=== PATIENT | male | born 1990 | race Caucasian/White ===

== ENCOUNTER 2016-11-07 20:17 | Emergency (ER) | payer SELFPAY ==
[~2016-11-07] VITALS: Ht 185.4 cm; Wt 102.3 kg
[~2016-11-07 20:17] MED LIST: IBUP-232 PO; Z.0.NO CURRENT MEDS; ZOFR4TAB3 SL
[2016-11-07 20:21] VITALS: BP 131/86; PULSE 82; RESP 16; TEMP 98.1; O2SAT 98
[2016-11-07 21:22] VITALS: BP 168/82; PULSE 86; RESP 18; O2SAT 99
[2016-11-07] MEDS ORDERED: ONDANSETRON HCL 4 MG/2 ML VIAL IV ONE (21:30)
[2016-11-07] MEDS ORDERED: SODIUM CHLOR 0.9% 1000 ML INJ 1,000 ML IV ONE ×2 (21:30→23:00)
[2016-11-07 21:44] LABS: BASOPHIL # 0.1 TH/MM3 (0-0.2); BASOPHIL % 0.4 % (0.0-2.0); EOSINOPHIL # 0.1 TH/MM3 (0-0.4); EOSINOPHIL % 0.6 % (0.0-4.0); HEMATOCRIT 47.9 % (39.0-51.0); HEMO FLAGS DIFF FINAL; LYMPH % 15.7 % (9.0-44.0); LYMPHOCYTE # 3.1 TH/MM3 (1.0-4.8); MEAN CELL VOLUME 86.3 FL (80.0-100.0); MEAN CORPUSCULAR HGB CONC 34.8 % (32.0-36.0); MONO % 6.1 % (0.0-8.0); NEUT % 77.2 % (16.0-70.0); PLATELET COUNT 286 TH/MM3 (150-450); RED BLOOD COUNT 5.55 MIL/MM3 (4.50-5.90); RED CELL DISTRIBUTION WIDTH 12.6 % (11.6-17.2); WHITE BLOOD COUNT 19.4 TH/MM3 (4.0-11.0)
--- NOTE | 2016-11-07 21:44 | PD ---
HPI Chief Complaint: Abdominal Pain Time Seen by Provider: 21:21 Travel History International Travel<30 days: No Contact w/Intl Traveler<30days: No History of Present Illness HPI The patient is a 26 year old male who presents to the [facility] emergency department with a history of severe abdominal pain that began abruptly at 7 PM while he was hanging out with a friend. He reports that his last meal was at 3 PM. He reports that he's never had a pain like this previously. He reports that the pain seems to move around his abdomen. He reports that it started in the midepigastric area and now has moved to the periumbilical area and is associated with a burning sensation in the right side of the scrotum. The patient denies having any scrotal swelling or penile discharge. He reports that since he is arrives in the emergency department he's begun to have dysuria with urinating small amounts of urine. He reports that he has had a kidney stone in the past, however the pain feels different. He reports that he does have associated back pain more on the right compared to the left. Her ports that he's had nausea and vomiting 8 associated with this. He reports that he has a pressure sensation in his abdomen that makes him feel like he has to move his bowels. He last moved his bowels at approximately 6 PM today and had a normal bowel movement. He denies having any blood in his stool or black or tarry stools. The patient reports that the pain is a sharp pain associated with a severe pressure sensation. He reports the pain is constant. On review of systems, the patient denies any recent known fevers, cough, congestion, neck pain, chest pain, shortness of breath, diarrhea, or neurologic symptoms. The patient reports that he has had some problems with recent heartburn, reflux symptoms. [facility] Past Medical History Narrative Medical The patient's past medical history is significant for kidney stones last 2-3 years ago. Medical History: Denies Significant Hx Tetanus Vaccination: > 5 Years Past Surgical History Narrative Surgical The patient's past surgical history is reportedly none. Surgical History: No Previous Surgery Social History Alcohol Use: Yes ([employer] EVERY OTHER DAY) Tobacco Use: No Substance Use: Yes (MJ) Allergies-Medications (Allergen,Severity, Reaction): Coded Allergies: No Known Allergies (Unverified , 11/07/16) Reported Meds & Prescriptions Reported Meds & Active Scripts Active Cipro (Ciprofloxacin HCl) 500 Mg Tab 500 Mg PO BID 10 Days Ibuprofen 600 Mg Tab 600 Mg PO Q8H PRN Zofran Odt (Ondansetron Odt) 4 Mg Tab 4 Mg SL Q6HR PRN Lortab (Hydrocodone-Acetaminophen) 7.5-325 Mg Tab 1 Tab PO Q4H PRN Flomax (Tamsulosin HCl) 0.4 Mg Cap 0.4 Mg PO HS Review of Systems Except as stated in HPI: all other systems reviewed are Neg General / Constitutional: No: Fever Eyes: No: Visual changes HENT: No: Headaches Cardiovascular: No: Chest Pain or Discomfort Respiratory: No: Shortness of Breath Gastrointestinal: Positive: Nausea, Vomiting, Abdominal Pain, Indigestion, No : Diarrhea, Hematemesis, Constipation, Changes in Bowel Habits Genitourinary: No: Dysuria Musculoskeletal: No: Pain Skin: No Rash Neurologic: No: Weakness Psychiatric: No: Depression Endocrine: No: Polydipsia Hematologic/Lymphatic: No: Easy Bruising Physical Exam Narrative General: The patient is a well-developed well-nourished female, uncomfortable appearing on my arrival to the room, writhing around in the bed, diaphoretic. Head and Neck exam: Head is normocephalic atraumatic. Eyes: EOMI, pupils are equal round and reactive to light. Nose: Midline septum with pink mucous membranes Mouth: Dentition unremarkable. Moist mucus membranes. Posterior oropharynx is not erythematous. No tonsillar hypertrophy. Uvula midline. Airway patent. Neck: No palpable lymphadenopathy. No nuchal rigidity. No thyromegaly. Cardiovascular: Sinus tachycardia in the low 100s without murmurs, gallops, or rubs. No pulse deficit to the extremities and simultaneous auscultation and palpation of his radial artery. Lungs: Clear to auscultation bilaterally. No wheezes, rhonchi, or rales. Abdomen: Soft, with tenderness on palpation along the right upper and right lower quadrant of the abdomen with a positive Taylor sign. The patient has no tenderness on palpation of the left upper quadrant or left lower quadrant on exam. No guarding, rebound, or rigidity. No tenderness on palpation of McBurney's point. Negative Taylor's sign. Extremities: No clubbing, cyanosis, or edema. 2+ pulses in all 4 extremities. No calf tenderness on palpation Back: No spinous process tenderness to palpation. Right-sided CVA tenderness on palpation. Neurologic Exam: Grossly nonfocal. Skin Exam: No rash noted. Intact skin that is warm and dry. Genital exam: The patient is a circumcised male. No genital lesions or rash noted. No penile discharge noted. No scrotal swelling on examination. No palpable testicle masses, however the patient reports having some discomfort on palpation of the posterior aspect of the right testicle along the epididymis. No palpable hernia. Data Data Last Documented VS Vital Signs Date Time Temp Pulse Resp B/P Pulse Ox O2 Delivery O2 Flow Rate FiO2 11/08/16 01:05 99 Room Air 11/07/16 21:22 86 18 168/82 11/07/16 20:21 98.1 Orders Complete Blood Count With Diff (11/07/16 21:22) Comprehensive Metabolic Panel (11/07/16 21:22) C-Reactive Protein (Crp) (11/07/16 21:22) Lipase (11/07/16 21:22) Urinalysis - C+S If Indicated (11/07/16 21:22) Chest, Single Ap (11/07/16 21:22) Iv Access Insert/Monitor (11/07/16 21:22) Ecg Monitoring (11/07/16 21:22) Oximetry (11/07/16 21:22) Lactic Acid (11/07/16 21:22) Sodium Chlor 0.9% 1000 Ml Inj (Ns 1000 M (11/07/16 21:30) Ondansetron Inj (Zofran Inj) (11/07/16 21:30) Hydromorphone Pf Inj (Dilaudid Pf Inj) (11/07/16 21:45) Ct Abd/Pel W Iv Contrast(Rout) (11/07/16 21:45) Sodium Chlor 0.9% 1000 Ml Inj (Ns 1000 M (11/07/16 23:00) Ketorolac Inj (Toradol Inj) (11/07/16 23:00) Prochlorperazine Inj (Compazine Inj) (11/07/16 23:15) Urine Culture (11/08/16 00:05) Ceftriaxone Inj (Rocephin Inj) (11/08/16 01:00) Prochlorperazine Inj (Compazine Inj) (11/08/16 01:15) Labs Laboratory Tests Test 11/07/16 11/08/16 21:25 00:05 Sodium Level 137 MEQ/L Potassium Level 3.0 MEQ/L Chloride Level 100 MEQ/L Carbon Dioxide Level 26.9 MEQ/L Anion Gap 10 MEQ/L Blood Urea Nitrogen 16 MG/DL Creatinine 1.31 MG/DL Estimat Glomerular Filtration 65 ML/MIN Rate Random Glucose 112 MG/DL Lactic Acid Level 1.8 mmol/L Calcium Level 10.1 MG/DL Total Bilirubin 0.4 MG/DL Aspartate Amino Transf 18 U/L (AST/SGOT) Alanine Aminotransferase 27 U/L (ALT/SGPT) Alkaline Phosphatase 81 U/L C-Reactive Protein LESS THAN 0.29 MG/DL Total Protein 8.2 GM/DL Albumin 4.7 GM/DL Lipase 121 U/L White Blood Count 19.4 TH/MM3 Red Blood Count 5.55 MIL/MM3 Hemoglobin 16.7 GM/DL Hematocrit 47.9 % Mean Corpuscular Volume 86.3 FL Mean Corpuscular Hemoglobin 30.0 PG Mean Corpuscular Hemoglobin 34.8 % Concent Red Cell Distribution Width 12.6 % Platelet Count 286 TH/MM3 Mean Platelet Volume 8.7 FL Neutrophils (%) (Auto) 77.2 % Lymphocytes (%) (Auto) 15.7 % Monocytes (%) (Auto) 6.1 % Eosinophils (%) (Auto) 0.6 % Basophils (%) (Auto) 0.4 % Neutrophils # (Auto) 15.0 TH/MM3 Lymphocytes # (Auto) 3.1 TH/MM3 Monocytes # (Auto) 1.2 TH/MM3 Eosinophils # (Auto) 0.1 TH/MM3 Basophils # (Auto) 0.1 TH/MM3 CBC Comment DIFF FINAL Differential Comment Urine Color YELLOW Urine Turbidity CLEAR Urine pH 6.5 Urine Specific [place] GREATER THAN 1.050 Urine Protein 30 mg/dL Urine Glucose (UA) NEG mg/dL Urine Ketones 10 mg/dL Urine Occult Blood SMALL Urine Nitrite NEG Urine Bilirubin NEG Urine Urobilinogen LESS THAN 2.0 MG/DL Urine Leukocyte Esterase SMALL Urine RBC 3 /hpf Urine WBC 88 /hpf Urine Bacteria RARE /hpf Microscopic Urinalysis Comment CULTURE INDICATED MDM Medical Decision Making Medical Screen Exam Complete: Yes Emergency Medical Condition: Yes Medical Record Reviewed: Yes Interpretation(s) Last Impressions Abdomen/Pelvis CT 11/07/162144 Signed Impressions: Service Date/Time: Monday, November 07, 2016 22:22 - CONCLUSION: 1. Right-sided obstructive uropathy with a tiny 2 mm calculus near the right UVJ with mild right sided hydronephrosis. No bowel obstruction, free air or free fluid. Daniel Haro MD Chest X-Ray 11/07/162121 Signed Impressions: Service Date/Time: Monday, November 07, 2016 21:37 - CONCLUSION: 1. No acute findings. Daniel Haro MD Differential Diagnosis Epididymitis, versus kidney stone, versus diverticulitis, versus constipation, versus perforated ulcer, versus biliary colic, versus acute cholecystitis, versus pyelonephritis Narrative Course During the course of the patients emergency department visit, the patients history, examination, and differential diagnosis were reviewed with the patient. The patient had IV access obtained and blood work sent for analysis. The patient was placed on a senior private client advisor with oximetry and blood pressure monitoring. A CT scan of the abdomen and pelvis was ordered. The patient was initially provided normal saline 1 L IV fluid bolus, Zofran 4 g IV times one for nausea, hydromorphone 1 mg IV for pain. The patients laboratory studies were reviewed and remarkable for a white count of 19.4, hemoglobin 16.7, platelets 286 with Estella 7.2 neutrophils, CMP is remarkable for potassium of 3.0 which was supplemented orally, creatinine 1.31, glucose 112, lipase 121, lactic acid 1.8, urinalysis shows greater than 1.05 specific gravity, 10 ketones, small occult blood, small leukocyte esterase, 3 RBCs, 88 wbc's, rare bacteria. Radiology studies were reviewed and remarkable for a chest x-ray that shows no acute abnormality. A CT scan of the abdomen and pelvis that shows a right- sided obstructive uropathy with a tiny 2 mm calculus near the right UVJ with mild right-sided hydronephrosis, no bowel obstruction, free air, or free fluid. The patient was given a dose of Rocephin 1 g IV. The patient had persistent nausea and was given Compazine 5 mg IV 2 separate doses. The patient's nausea improved. The patient was discharged home with a prescription for Lortab, ibuprofen, Zofran, ciprofloxacin and Flomax. The patient was instructed regarding the importance of following up with the urologist. As he has no local urologist, he was given the name of the urologist on-call for follow-up within the next 2 days. The patient is resting comfortably and feels better, is alert and in no distress. The patients results and examination findings were discussed with the patient. The repeat examination is unremarkable and benign. The history, exam, diagnostic testing, and current condition do not suggest any significant pathology to warrant further testing, continued ED treatment, admission, or surgical evaluation at this point. The vital signs have been stable. The patient does not have uncontrollable pain, intractable vomiting, or other significant symptoms. The patient's condition is stable and appropriate for discharge. The patient will pursue further outpatient evaluation with a primary care physician or other designated or consulting physician as indicated in the discharge instructions. The patient expressed understanding and was agreeable with this plan. Diagnosis Primary Impression: Abdominal pain Qualified Code: R10.9 - Abdominal pain, unspecified location Additional Impressions: Vomiting Qualified Code: R11.2 - Non-intractable vomiting with nausea, unspecified vomiting type Ureterolithiasis Referrals: Ronald Christine DO Patient Instructions: General Instructions, Kidney Stones (ED) Departure Forms: Tests/Procedures, Work Release Enter return to work date: Nov 11, 2016 Med/Other Pt SpecificInfo: Prescription(s) given Scripts Ciprofloxacin (Cipro)500 Mg [id number] Mg PO BID 10 Days Ref 0 Prov:Radha Thompson MD 11/08/16 Ibuprofen 600 Mg [id number] Mg PO Q8H PRN (PAIN) #12 TAB Ref 0 Prov:Radha Thompson MD 11/08/16 Ondansetron Odt (Zofran Odt)4 Mg Tab4 Mg SL Q6HR PRN (Nausea/Vomiting) #7 TAB Ref 0 Prov:Radha Thompson MD 11/08/16 Hydrocodone-Acetaminophen (Lortab)7.5-325 Mg Tab1 Tab PO Q4H PRN (PAIN) #20 TAB Ref 0 Prov:Radha Thompson MD 11/08/16 Tamsulosin (Flomax)0.4 Mg Cap0.4 Mg PO HS #14 CAP Ref 0 Prov:Radha Thompson MD 11/08/16 Disposition: 01 DISCHARGE HOME Condition: Stable Radha Thompson MD Nov 07, 2016 21:44
[2016-11-07] MEDS ORDERED: HYDROmorphone HCL PF 1 MG/ML VIAL IV PUSH ONE (21:45)
[2016-11-07 22:04] LABS: ANION GAP 10 MEQ/L (5-15); AST (GOT) 18 U/L (15-37); BICARBONATE 26.9 MEQ/L (21.0-32.0); BLOOD UREA NITROGEN 16 MG/DL (7-18); CHLORIDE 100 MEQ/L (98-107); GLOMERULAR FILTRATION RATE 65 ML/MIN (>89); SODIUM (NA) 137 MEQ/L (136-145)
[2016-11-07 22:05] LABS: ALT (GPT) 27 U/L (12-78)
[2016-11-07 22:07] LABS: ALKALINE PHOSPHATASE 81 U/L (45-117); TOTAL BILIRUBIN ADULT 0.4 MG/DL (0.2-1.0)
[2016-11-07] MEDS ORDERED: IOHEXOL 350 MG/ML 10 ML VIAL (for RAD DIAG) IV ONE (22:22)
--- NOTE | 2016-11-07 22:39 | RADRPT ---
EXAM DATE/TIME: 11/07/2016 21:37 [facility] COMPARISON: No previous studies available for comparison. INDICATIONS : Epigastric pain and vomiting tonight. MEDICAL HISTORY : None. SURGICAL HISTORY : None. ENCOUNTER: Initial ACUITY: 1 day PAIN SCORE: 10/10 LOCATION: Abdomen, upper quadrant. FINDINGS: A single view of the chest demonstrates the lungs to be symmetrically aerated without evidence of mas s, infiltrate or effusion. The cardiomediastinal contours are unremarkable. Osseous structures are intact. CONCLUSION: 1. No acute findings. Daniel Haro MD on November 07, 2016 at 22:37 Board Certified Radiologist. This report was verified electronically.
--- NOTE | 2016-11-07 22:51 | RADRPT ---
EXAM DATE/TIME: 11/07/2016 22:22 [facility] COMPARISON: No previous studies available for comparison. INDICATIONS : Diffuse abdominal pain and vomiting. IV CONTRAST: 95 cc Omnipaque 350 (iohexol) IV ORAL CONTRAST: No oral contrast ingested. RADIATION DOSE: 12.13 CTDIvol (mGy) MEDICAL HISTORY : None SURGICAL HISTORY : None. ENCOUNTER: Initial ACUITY: 1 day PAIN SCALE: 10/10 LOCATION: All quadrants. TECHNIQUE: Volumetric scanning of the abdomen and pelvis was performed. Using automated exposure control and ad justment of the mA and/or kV according to patient size, radiation dose was kept as low as reasonably achievable to obtain optimal diagnostic quality images. FINDINGS: There is a right-sided obstructive uropathy with mild right hydronephrosis. There is a tiny approxima tely 1-2 mm calculus near the right ureterovesical junction. There is a nonobstructing 3 mm calculus lower pole left kidney. Lung bases are clear. No acute findings in the liver, spleen, adrenals or pancreas. No calcified gall stones. No free fluid. The bowel obstruction. Adenopathy. No acute bony anomalies. Mild scoliosis. CONCLUSION: 1. Right-sided obstructive uropathy with a tiny 2 mm calculus near the right UVJ with mild right side d hydronephrosis. No bowel obstruction, free air or free fluid. Daniel Haro MD on November 07, 2016 at 22:44 Board Certified Radiologist. This report was verified electronically.
[2016-11-07] MEDS ORDERED: KETOROLAC TROMETHAMINE 30 MG/ML (IVP) VIAL IV PUSH ONE (23:00)
[2016-11-07] MEDS ORDERED: PROCHLORPERAZINE INJ 10 MG/2 ML VIAL IV PUSH ONE (23:15)
[2016-11-08] MEDS ORDERED: ZOFR4TAB3 SL (00:03)
[2016-11-08] MEDS ORDERED: TAMS5CAP PO (00:03)
[2016-11-08] MEDS ORDERED: HYDR-3534 PO (00:03)
[2016-11-08] MEDS ORDERED: IBUP-232 PO (00:03)
[2016-11-08 00:30] LABS: BACTERIA, URINE RARE /hpf; BLOOD, URINE SMALL (NEG); COMMENT (UR) CULTURE INDICATED; CULTURE IF INDICATED CULTURE INDICATED; GLUCOSE,URINE NEG (NEG); KETONE, URINE 10 mg/dL (NEG); NITRITE,URINE NEG (NEG); PH, URINE 6.5 (5.0-8.5); URINE COLOR YELLOW (YELLW/STRAW)
[2016-11-08] MEDS ORDERED: CIPR-9 PO (00:47)
[2016-11-08] MEDS ORDERED: cefTRIAXone INJ 1,000 MG in SODIUM CHLORIDE 0.9% INJ 100 ML IV ONE (01:00)
[2016-11-08 01:05] VITALS: O2SAT 99
[2016-11-08] MEDS ORDERED: PROCHLORPERAZINE INJ 10 MG/2 ML VIAL IV PUSH ONE (01:15)
== END 2016-11-08 01:51 | disposition home or self-care (01) ==
LOC: NEPE 20:17
DX: R10.9 Unspecified abdominal pain (principal); R11.2 Nausea with vomiting, unspecified; N20.1 Calculus of ureter
CPT/HCPCS: 71010; 74177; 80053; 81001; 83605; 83690; 85025; 86140; 87086; 96361; 96365; 96375; 96376; 99285; J0696; J0780; J1170; J1885; J2405; J7030; Q9967